=== PATIENT | female | born 1980 | race Caucasian/White ===

== ENCOUNTER 2022-03-21 12:23 | Emergency (ER) | payer SELFPAY ==
[~2022-03-21] VITALS: Ht 170.1 cm; Wt 85.3 kg
[~2022-03-21 12:23] MED LIST: AMOXICILLIN500 MG PO; DIFLUCAN150 MG PO; MOTRIN800 MG PO; PANTOPRAZOLE SO40 MG PO; PREVACID30 M1 PO; VICODIN 5/500 505 MG PO; ZANTAC 300300 MG PO
[2022-03-21 12:24] VITALS: BP 157/106
== END 2022-03-21 18:49 | disposition left against medical advice (07) ==
LOC: ED 12:23
DX: Z53.21 Procedure and treatment not carried out due to patient leaving prior to being seen by health care provider (principal)

== ENCOUNTER 2022-10-19 16:05 | Emergency (ER) | payer BC ==
[~2022-10-19] VITALS: Ht 170.1 cm; Wt 93.0 kg
[2022-10-19 16:48] LABS: BASO % 0.3 % (0.0-1.0); EOS # 0.1 10*3/uL (0.0-0.4); EOS % 0.8 % (1.0-4.0); HEMATOCRIT 50.6 % (37.0-47.0); LYMPH # 2.3 10*3/uL (1.3-4.4); LYMPH % 32.2 % (27.0-41.0); MEAN CELL VOLUME 86.9 fl (81.0-99.0); MEAN CORPUSCULAR HGB 30.1 pg (27.0-31.0); MEAN CORPUSCULAR HGB CONC 34.6 g/dl (33.0-37.0); MEAN PLATELET VOLUME 10.5 fl (9.6-12.3); MONO # 0.5 10*3/uL (0.1-1.0); MONO % 7.3 % (3.0-9.0); NEUT # 4.2 10*3/uL (2.3-7.9); PLATELET COUNT AUTOMATED 270 10*3/uL (130-400); RED BLOOD COUNT 5.82 10*6/uL (4.10-5.10); RED CELL DISTRI WIDTH 13.2 % (0-14.5); WHITE BLOOD COUNT 7.2 10*3/uL (4.8-10.8)
[2022-10-19 17:03] LABS: ALKALINE PHOSPHATASE 83 U/L (46-116); BETA-HCG, QUANT < 3.0 mIU/mL (0-10); BUN 13 mg/dl (9-23); CHLORIDE 99 mmol/L (98-107); LIPASE 26 U/L (12-53); POTASSIUM 3.3 mmol/L (3.4-5.1); SGPT/ALT 16 U/L (10-49); TOTAL PROTEIN 8.2 gm/dL (6.0-8.0)
[2022-10-19 17:15] LABS: ACT PARTIAL THROMBO TIME 36.5 SECONDS (20.0-32.1)
[2022-10-19] MEDS ORDERED: AMOXICILLIN875 MG PO (18:49)
[2022-10-19 19:08] VITALS: BP 150/99
== END 2022-10-19 19:07 | disposition home or self-care (01) ==
LOC: ED 16:05
PROVIDERS: Emergency Medicine
DX: I10 Essential (primary) hypertension (principal); J02.9 Acute pharyngitis, unspecified; Z98.51 Tubal ligation status

== ENCOUNTER → 2022-11-22 | Outpatient (CLI) | payer BC ==
[~2022-11-22] MED LIST changes: +AMOXICILLIN875 MG PO
== END | disposition home or self-care (01) ==
LOC: CARD 13:44
PROVIDERS: ATTEND Nurse Practitioner Family
DX: I10 Essential (primary) hypertension (principal); D58.2 Other hemoglobinopathies; R63.5 Abnormal weight gain; Z80.8 Family history of malignant neoplasm of other organs or systems

== ENCOUNTER → 2025-06-19 | Outpatient (CLI) | payer OTHER | END | disposition home or self-care (01) | LOC: RHCWE 16:10 → LAB 16:10 | PROVIDERS: ATTEND Nurse Practitioner Family | DX: R30.0 Dysuria (principal) ==

== ENCOUNTER → 2025-06-20 | Outpatient (CLI) | payer OTHER ==
[2025-06-20 16:12] LABS: BASO # 0.0 10*3/uL (0.0-0.1); BASO % 0.5 % (0.0-1.0); EOS # 0.0 10*3/uL (0.0-0.4); EOS % 0.7 % (1.0-4.0); MEAN CELL VOLUME 91.6 fl (81.0-99.0); MEAN CORPUSCULAR HGB 29.9 pg (27.0-31.0); MEAN PLATELET VOLUME 10.5 fl (9.6-12.3); MONO # 0.4 10*3/uL (0.1-1.0); MONO % 5.8 % (3.0-9.0); NEUT # 3.5 10*3/uL (2.3-7.9); NEUT % 58.6 % (47.0-73.0); NUCLEATED RED BLOOD CELL 0.0 % (0.0-0.0); NUCLEATED RED BLOOD CELL 0.0 10*3/uL (0.0-0.0); PLATELET COUNT AUTOMATED 254 10*3/uL (130-400); RED CELL DISTRI WIDTH 13.4 % (0-14.5)
[2025-06-20 16:41] LABS: BUN 14 mg/dl (9-23); LDL CHOLESTEROL 94 mg/dL (9-159); SGPT/ALT 14 U/L (5-49)
== END | disposition home or self-care (01) ==
LOC: RHCWE 11:42
PROVIDERS: ATTEND Nurse Practitioner Family
DX: I10 Essential (primary) hypertension (principal); R30.0 Dysuria; Z13.220 Encounter for screening for lipoid disorders; Z13.29 Encounter for screening for other suspected endocrine disorder; Z13.1 Encounter for screening for diabetes mellitus; Z76.89 Persons encountering health services in other specified circumstances